=== PATIENT | male | born 1990 | race American Indian/Alaskan Native ===

== ENCOUNTER 2019-04-05 16:56 | Emergency (ER) | payer SELFPAY ==
--- NOTE | 2019-04-05 17:08 | Event Note ---
ED Screening Note ED Screening Note: stomach pain stopped his stomach meds n/v this AM also co rash on neck hyperverbal pmh gastritis rx none psh none etoh occ thc This initial assessment/diagnostic orders/clinical plan/treatment(s) is/are subject to change based on patients health status, clinical progression and re- assessment by fellow clinical providers in the ED. Further treatment and workup at subsequent clinical providers discretion. Patient/guardian urged not to elope from the ED as their condition may be serious if not clinically assessed and managed. Initial orders include: lab/xray/ua
[2019-04-05 17:09] VITALS: BP 115/67
[2019-04-05 17:30] LABS: Hematocrit 46.2 % (35.5-45.6); Hemoglobin 15.8 gm/dl (11.8-15.2); Mean Corpuscular HGB Conc 34 % (32-34); Mean Corpuscular Volume 94 fl (84-94); Platelet Count 235 K/mm3 (140-440)
[2019-04-05 17:42] LABS: BUN/Creatinine Ratio 14; Blood Urea Nitrogen 11 mg/dL (9-20); Hemolysis Index 25
--- NOTE | 2019-04-05 17:43 | XRay Report ---
ABDOMEN 3 views, 04/05/2019 INDICATION: abd pain FINDINGS: The bowel gas pattern is within normal limits. There are no dilated loops of large or small bowel. No free air is identified. No radiopaque urinary tract calculi are seen. The lungs are clear. IMPRESSION: No acute findings. Signer Name: Emmanuel Coffey MD Signed: 04/05/2019 5:39 PM Workstation Name: [id number]
[2019-04-05 17:44] LABS: Bilirubin,Urine NEG (Negative); Blood,Urine NEG (Negative); Color,Urine Yellow (Yellow); Mucus,Urine 3+ /HPF; Urobilinogen,Urine < 2.0 mg/dL (<2.0)
[2019-04-05] MEDS ORDERED: LIDOCAINE VISCOUS 2% PO ONE (19:34)
[2019-04-05] MEDS ORDERED: ALUM-MAG HYDROX-SIMETH 200-200-20MG/5ML PO ONE (19:34)
--- NOTE | 2019-04-05 19:40 | Emergency Department Report ---
ED Abdominal Pain HPI - General Chief Complaint: Nausea/Vomiting/Diarrhea Stated Complaint: STOMACH PAIN/VOMITTING Time Seen by Provider: 04/05/19 17:07 Source: patient Mode of arrival: Ambulatory Limitations: No Limitations - History of Present Illness Initial Comments: Patient is a 28-year-old -Thai male with history of GERD and gastroenteritis who presents for nausea and vomiting and stomach pain states out of medicine is no fevers no chills no nausea no vomiting patient rates symptoms as mild patient is tolerating by mouth intake without nausea vomiting no diarrhea no constipation no melena patient requesting medication refill MD Complaint: abdominal pain Onset/Timin -: week(s) Location: LLQ Radiation: LLQ Migration to: LLQ Severity: moderate Severity scale (0 -10): 5 Quality: aching, burning Consistency: intermittent Improves With: other (belching ) Worsens With: eating Associated Symptoms: denies: nausea, vomiting, diarrhea, fever, chills, constipation, dysuria, melena - Related Data Previous Rx's Medication Instructions Recorded Last Taken Type Omeprazole 40 mg PO DAILY #30 capsule. 04/05/19 Unknown Rx Sucralfate [Carafate] 1 gm PO ACHS 7 Days #28 tablet 04/05/19 Unknown Rx Allergies Allergy/AdvReac Type Severity Reaction Status Date / Time No Known Allergies Allergy Unverified 04/05/19 16:57 ED Review of Systems ROS: Stated complaint: STOMACH PAIN/VOMITTING Other details as noted in HPI Constitutional: denies: chills, fever Eyes: denies: eye pain, eye discharge, vision change ENT: denies: ear pain, throat pain Respiratory: denies: cough, shortness of breath, wheezing Cardiovascular: denies: chest pain, palpitations Endocrine: no symptoms reported Gastrointestinal: abdominal pain. denies: nausea, vomiting, diarrhea, constipation, hematemesis, melena, hematochezia Genitourinary: denies: urgency, dysuria Musculoskeletal: as per HPI Skin: denies: rash, lesions Neurological: denies: headache, weakness, paresthesias Psychiatric: denies: anxiety, depression Hematological/Lymphatic: denies: easy bleeding, easy bruising ED Past Medical Hx - Past Medical History Additional medical history: GASTRITS - Surgical History Past Surgical History?: No - Social History Smoking Status: Never Smoker Substance Use Type: Marijuana - Medications Home Medications: Home Medications Medication Instructions Recorded Confirmed Last Taken Type Omeprazole 40 mg PO DAILY #30 capsule. 04/05/19 Unknown Rx Sucralfate [Carafate] 1 gm PO ACHS 7 Days #28 tablet 04/05/19 Unknown Rx ED Physical Exam - General Limitations: No Limitations General appearance: alert, in no apparent distress - Head Head exam: Present: atraumatic, normocephalic - Eye Eye exam: Present: normal appearance, PERRL, EOMI Pupils: Present: normal accommodation - ENT ENT exam: Present: normal orophraynx, mucous membranes moist, TM's normal bilaterally, normal external ear exam - Neck Neck exam: Present: normal inspection, full ROM. Absent: tenderness, lymphaden opathy, thyromegaly - Respiratory Respiratory exam: Present: normal lung sounds bilaterally. Absent: respiratory distress, wheezes, stridor, chest wall tenderness - Cardiovascular Cardiovascular Exam: Present: regular rate, normal rhythm, normal heart sounds. Absent: systolic murmur, diastolic murmur, rubs, gallop - GI/Abdominal GI/Abdominal exam: Present: soft, normal bowel sounds. Absent: distended, tenderness, guarding, rebound, rigid, bruit, hernia - Expanded GI/Abdominal Exam Expanded GI/Abdominal exam: Absent: psoas sign, obturator sign, heel tap sign, [place]ani[place]'s sign, Rovsing's sign, tenderness at [place]'s Point, ascites - Rectal Rectal exam: Present: deferred - Extremities Exam Extremities exam: Present: normal inspection, full ROM, normal capillary refill - Back Exam Back exam: Present: normal inspection, full ROM. Absent: tenderness, CVA tenderness (R), CVA tenderness (L) - Neurological Exam Neurological exam: Present: alert, oriented X3, CN II-XII intact, normal gait, reflexes normal. Absent: motor sensory deficit - Psychiatric Psychiatric exam: Present: normal affect, normal mood - Skin Skin exam: Present: warm, dry, intact, normal color. Absent: rash ED Course Vital Signs 04/05/19 17:07 Temperature 99 F Pulse Rate 69 Respiratory 16 Rate Blood Pressure 115/67 O2 Sat by Pulse 96 Oximetry ED Medical Decision Making - Lab Data Result diagrams: 04/05/19 17:14 04/05/19 17:14 Labs 04/05/19 04/05/1919 17:00 17:14 17:14 WBC 10.1 RBC 4.90 Hgb 15.8 H Hct 46.2 H MCV 94 MCH 32 MCHC 34 RDW 14.0 Plt Count 235 Sodium 140 Potassium 4.0 Chloride 102.1 Carbon Dioxide 26 Anion Gap 16 BUN 11 Creatinine 0.8 Estimated GFR > 60 BUN/Creatinine Ratio 14 Glucose 101 H Calcium 10.0 Lipase 19 Urine Color Yellow Urine Turbidity Clear Urine pH 7.0 Ur Specific [place] 1.027 Urine Protein 30 mg/dl Urine Glucose (UA) Neg Urine Ketones Neg Urine Blood Neg Urine Nitrite Neg Urine Bilirubin Neg Urine Urobilinogen < 2.0 Ur Leukocyte Esterase Neg Urine WBC (Auto) 3.0 Urine RBC (Auto) 4.0 Urine Mucus 3+ - Medical Decision Making pt appears well well hydrated well nourished no n/v no fever or chills labs normal plan, carafate omeprazole follow up with gastroenterology in 2-3 days pt verbalzed agreement and understanding of discharge. Critical care attestation.: If time is entered above; I have spent that time in minutes in the direct care of this critically ill patient, excluding procedure time. ED Disposition Clinical Impression: GERD (gastroesophageal reflux disease) Qualifiers: Esophagitis presence: without esophagitis Qualified Code(s): K21.9 - Gastro- esophageal reflux disease without esophagitis Abdominal pain Qualifiers: Abdominal location: left lower quadrant Qualified Code(s): R10.32 - Left lower quadrant pain Disposition: -01 TO HOME OR SELFCARE Is pt being admited?: No Does the pt Need Aspirin: No Condition: Stable Instructions: Diet for Ulcers and Gastritis (ED), Gastroesophageal Reflux Disease (ED) Prescriptions: Sucralfate [Carafate] 1 gm PO ACHS 7 Days #28 tablet Omeprazole 40 mg PO DAILY #30 capsule. Referrals: [facility] [Provider Group] - 3-5 Days Forms: Work/School Release Form(ED) Time of Disposition: 19:44
== END 2019-04-05 20:00 | disposition home or self-care (01) ==
LOC: ED 16:56
DX: K21.9 Gastro-esophageal reflux disease without esophagitis (principal); F12.10 Cannabis abuse, uncomplicated
CPT/HCPCS: 36415; 74022; 80048; 81001; 83690; 85027

== ENCOUNTER 2019-05-24 13:01 | Emergency (ER) | payer OTHER ==
[2019-05-24 13:12] VITALS: BP 131/78
[2019-05-24 14:24] LABS: Mucus,Urine 3+ /HPF
[2019-05-24 14:38] LABS: Basophils # (Auto) 0.1 K/mm3 (0.0-0.1); Eosinophils % (Auto) 0.3 % (0.0-4.3); Lymphocytes # (Auto) 2.8 K/mm3 (1.2-5.4); Lymphocytes % (Auto) 23.7 % (13.4-35.0); Mean Corpuscular HGB Conc 34 % (32-34); Mean Corpuscular Volume 94 fl (84-94); Monocytes # (Auto) 1.2 K/mm3 (0.0-0.8); Monocytes % (Auto) 9.9 % (0.0-7.3); Platelet Count 237 K/mm3 (140-440); Red Blood Count 5.02 M/mm3 (3.65-5.03); Red Cell Distribution Width 13.5 % (13.2-15.2)
[2019-05-24 14:48] LABS: BUN/Creatinine Ratio 21; Blood Urea Nitrogen 17 mg/dL (9-20); Calcium 9.9 mg/dL (8.4-10.2); Hemolysis Index 81
[2019-05-24 15:08] LABS: Bilirubin,Urine NEG (Negative); Blood,Urine NEG (Negative); Calcium Oxalate Crystals,Urine 1+; Color,Urine Yellow (Yellow)
[2019-05-24] MEDS ORDERED: LIDOCAINE VISCOUS 2% PO ONE (15:16)
[2019-05-24] MEDS ORDERED: ALUM-MAG HYDROX-SIMETH 200-200-20MG/5ML PO ONE (15:16)
[2019-05-24] MEDS ORDERED: BENTYL PO ONE (15:16)
--- NOTE | 2019-05-24 15:21 | Emergency Department Report ---
ED Abdominal Pain HPI - General Chief Complaint: Abdominal Pain Stated Complaint: ABD PAIN Time Seen by Provider: 05/24/19 15:07 Source: patient Mode of arrival: Ambulatory Limitations: No Limitations - History of Present Illness Initial Comments: Patient is a 29-year-old male who presents to emergency room with complaints of left upper quadrant abdominal pain that began a couple days ago. He describes the pain as a burning sensation. He states he has a history of gastritis and GERD and states he use to see a GI doctor in [place]. He states he was previously on simethicone and pantoprazole. Patient was evaluated in the emergency department for the same symptoms on 04/05/19 and given a referral to GI. Pt states he did not follow up with GI and has run out of his medications again. He states he has intermittent nausea, vomiting, diarrhea. He states the symptoms began after drinking wine and beer. the patient states he typically gets these symptoms with his gastritis/gerd. denies any other medical problems. - Related Data Previous Rx's Medication Instructions Recorded Last Taken Type Hydrocortisone 1% (Nf) [Anti-Itch 1 applicatio TP BID 14 Days #1 tube 04/05/19 Unknown Rx 1% OINT] Omeprazole 40 mg PO DAILY #30 capsule.dr 04/05/19 Unknown Rx Sucralfate [Carafate] 1 gm PO ACHS 7 Days #28 tablet 04/05/19 Unknown Rx Hyoscyamine Subl [Levsin Sl 0.125 0.125 mg SL Q6HR PRN #14 tab 05/24/19 Unknown Rx TAB] Pantoprazole [Protonix TAB] 40 mg PO BID #60 tablet 05/24/19 Unknown Rx Simethicone [Gas-X] 62.5 mg PO DAILY PRN #1 strip 05/24/19 Unknown Rx Allergies Allergy/AdvReac Type Severity Reaction Status Date / Time No Known Allergies Allergy Unverified 04/05/19 16:57 ED Review of Systems ROS: Stated complaint: ABD PAIN Other details as noted in HPI Comment: All other systems reviewed and negative ED Past Medical Hx - Past Medical History Previous Medical History?: Yes Additional medical history: GASTRITS - Surgical History Past Surgical History?: No - Social History Smoking Status: Never Smoker Substance Use Type: None - Medications Home Medications: Home Medications Medication Instructions Recorded Confirmed Last Taken Type Hydrocortisone 1% (Nf) [Anti-Itch 1 applicatio TP BID 14 Days #1 tube 04/05/19 Unknown Rx 1% OINT] Omeprazole 40 mg PO DAILY #30 capsule. 04/05/19 Unknown Rx Sucralfate [Carafate] 1 gm PO ACHS 7 Days #28 tablet 04/05/19 Unknown Rx Hyoscyamine Subl [Levsin Sl 0.125 0.125 mg SL Q6HR PRN #14 tab 05/24/19 Unknown Rx TAB] Pantoprazole [Protonix TAB] 40 mg PO BID #60 tablet 05/24/19 Unknown Rx Simethicone [Gas-X] 62.5 mg PO DAILY PRN #1 strip 05/24/19 Unknown Rx ED Physical Exam - General Limitations: No Limitations General appearance: alert, in no apparent distress - Head Head exam: Present: atraumatic, normocephalic - Eye Eye exam: Present: normal appearance - ENT ENT exam: Present: mucous membranes moist - Respiratory Respiratory exam: Present: normal lung sounds bilaterally. Absent: respiratory distress, wheezes, rales, rhonchi, stridor, chest wall tenderness, accessory muscle use, decreased breath sounds, prolonged expiratory - Cardiovascular Cardiovascular Exam: Present: regular rate, normal rhythm, normal heart sounds. Absent: systolic murmur, diastolic murmur, rubs, gallop - GI/Abdominal GI/Abdominal exam: Present: soft, tenderness (mild LUQ), normal bowel sounds. Absent: distended, guarding, rebound, rigid - Neurological Exam Neurological exam: Present: alert, oriented X3 - Psychiatric Psychiatric exam: Present: normal affect, normal mood - Skin Skin exam: Present: warm, dry ED Course Vital Signs 05/24/19 13:11 Temperature 98.6 F Pulse Rate 77 Respiratory 16 Rate Blood Pressure 131/78 O2 Sat by Pulse 98 Oximetry ED Medical Decision Making - Lab Data Result diagrams: 05/24/19 14:10 05/24/19 14:10 Lab Results 05/24/19 05/24/19 05/24/19 Range/Units 14:10 14:10 Unknown WBC 11.8 H (4.5-11.0) K/mm3 RBC 5.02 (3.65-5.03) M/mm3 Hgb 16.0 H (11.8-15.2) gm/dl Hct 47.0 H (35.5-45.6) % MCV 94 (84-94) fl MCH 32 (28-32) pg MCHC 34 (32-34) % RDW 13.5 (13.2-15.2) % Plt Count 237 (140-440) K/mm3 Lymph % (Auto) 23.7 (13.4-35.0) % [place] % (Auto) 9.9 H (0.0-7.3) % Eos % (Auto) 0.3 (0.0-4.3) % Baso % (Auto) 1.0 (0.0-1.8) % Lymph # 2.8 (1.2-5.4) K/mm3 [place] # 1.2 H (0.0-0.8) K/mm3 Eos # 0.0 (0.0-0.4) K/mm3 Baso # 0.1 (0.0-0.1) K/mm3 Seg Neutrophils % 65.1 (40.0-70.0) % Seg Neutrophils # 7.7 (1.8-7.7) K/mm3 Sodium 137 (137-145) mmol/L Potassium 3.7 (3.6-5.0) mmol/L Chloride 95.3 L (98-107) mmol/L Carbon Dioxide 27 (22-30) mmol/L Anion Gap 18 mmol/L BUN 17 (9-20) mg/dL Creatinine 0.8 (0.8-1.5) mg/dL Estimated GFR > 60 ml/min BUN/Creatinine Ratio 21 % Glucose 104 H (75-100) mg/dL Calcium 9.9 (8.4-10.2) mg/dL Urine Color Yellow (Yellow) Urine Turbidity Clear (Clear) Urine pH 6.0 (5.0-7.0) Ur Specific [place] 1.033 H (1.003-1.030) Urine Protein 30 mg/dl (Negative) mg/dL Urine Glucose (UA) Neg (Negative) mg/dL Urine Ketones 80 (Negative) mg/dL Urine Blood Neg (Negative) Urine Nitrite Neg (Negative) Ur Reducing Substances Not Reportable Urine Bilirubin Neg (Negative) Urine Ictotest Not Reportable Urine Urobilinogen 2.0 (<2.0) mg/dL Ur Leukocyte Esterase Neg (Negative) Urine WBC (Auto) 2.0 (0.0-6.0) /HPF Urine RBC (Auto) 4.0 (0.0-6.0) /HPF U Epithel Cells (Auto) < 1.0 (0-13.0) /HPF Calcium Oxalate Crystal 1+ Urine Mucus 3+ /HPF Critical care attestation.: If time is entered above; I have spent that time in minutes in the direct care of this critically ill patient, excluding procedure time. ED Disposition Clinical Impression: Nausea vomiting and diarrhea Abdominal pain Qualifiers: Abdominal location: left upper quadrant Qualified Code(s): R10.12 - Left upper quadrant pain Disposition: TO HOME OR SELFCARE Is pt being admited?: No Does the pt Need Aspirin: No Condition: Stable Instructions: Gastroesophageal Reflux Disease (ED), Diet for Ulcers and Johanna ritis (ED), Gastritis (ED) Additional Instructions: please take medication as prescribed. drink plenty of water. follow the diet for gastritis and acid reflux. follow up with a GI doctor in the next 2-3 days. it is very important you follow up with a GI doctor. return to the emergency room for any new or worsening symptoms. Prescriptions: Simethicone [Gas-X] 62.5 mg PO DAILY PRN #1 strip PRN Reason: gas pain Hyoscyamine Subl [Levsin Sl 0.125 TAB] 0.125 mg SL Q6HR PRN #14 tab PRN Reason: abdominal pain Pantoprazole [Protonix TAB] 40 mg PO BID #60 tablet Referrals: [facility] [Provider Group] - 2-3 Days Time of Disposition: 15:20 Print Language: ANDORRAN
== END 2019-05-24 15:34 | disposition home or self-care (01) ==
LOC: ED 13:01
DX: R10.12 Left upper quadrant pain (principal); R11.2 Nausea with vomiting, unspecified; R19.7 Diarrhea, unspecified
CPT/HCPCS: 36415; 80048; 81001; 85025

== ENCOUNTER 2022-03-13 10:27 | Emergency (ER) | payer SELFPAY | END 2022-03-13 12:00 | disposition left against medical advice (07) | LOC: ED 10:27 | DX: R10.9 Unspecified abdominal pain (principal); Z53.21 Procedure and treatment not carried out due to patient leaving prior to being seen by health care provider ==

== ENCOUNTER 2022-03-13 14:18 | Emergency (ER) | payer SELFPAY | END 2022-03-13 16:00 | disposition left against medical advice (07) | LOC: ED 14:18 | DX: R11.0 Nausea (principal); Z53.21 Procedure and treatment not carried out due to patient leaving prior to being seen by health care provider ==